=== PATIENT | female | born 1975 | race Caucasian/White ===

== ENCOUNTER 2016-08-10 21:37 | Emergency (ER) | payer OTHER ==
[2016-08-10 22:46] VITALS: TEMP 99.1
--- NOTE | 2016-08-11 00:02 | XR ---
ADDENDUM - Added by Brandon Loza M.D. on 08/11/2016 12:28 AM (-07:00) Well defined benign appearing lytic lesion is seen within the scaphoid which may represent a unicameral bone cyst, aneurysmal bone cyst, intraosseous ganglion, giant cell tumor or other lesion. No definite evidence of fracture. Impression. EXAM: XR Left Hand Complete, 3 or More Views CLINICAL HISTORY: Reason: Pain TECHNIQUE: Frontal, lateral and oblique views of the left hand. COMPARISON: No relevant prior studies available. FINDINGS: Bones/joints: Unremarkable. No acute fracture. No dislocation. Soft tissues: Unremarkable. No radiopaque foreign body. IMPRESSION: Unremarkable left hand x-rays.
--- NOTE | 2016-08-11 00:15 | ED ---
Upper Extremity HPI - General Chief Complaint: Extremity Injury, Upper Stated Complaint: lt wrist pain Time Seen by Provider: 08/10/16 23:04 Source: patient, RN notes reviewed Mode of arrival: ambulatory Limitations: no limitations - History of Present Illness Initial Comments: This is a 41 year old female with left wrist pain, patient reports she has no significant injury to cause this. She reports she woke up to the pain. STates that she has no numbness or thingling. She reports she is right handed. She states that she has not taken any anti inflammatories yet. reports pain is worse with movment of wrist, and more towards ganesh thumb. - Related Data Home Medications Medication Instructions Recorded Confirmed Atorvastatin [Lipitor] 20 mg PO HS 04/12/14 08/10/16 Citalopram Hydrobromide 40 mg PO DAILY 04/12/14 08/10/16 [Citalopram HBr] Ibuprofen [Motrin] 800 mg PO TID PRN 04/12/14 08/10/16 buPROPion SR [Wellbutrin Sr] 150 mg PO BID 04/12/14 08/10/16 Albuterol Inhaler [Ventolin Hfa 2 puff INHALATION RT-Q6H PRN 10/23/15 08/10/16 Inhaler] Cetirizine HCl [Zyrtec] 10 mg PO DAILY 10/23/15 08/10/16 Ergocalciferol [Vitamin D2 50,000 unit PO WE 10/23/15 08/10/16 (DRISDOL)] Ranitidine HCl [Zantac] 150 mg PO BID 10/23/15 08/10/16 oxyCODONE-APAP 10-325MG [Percocet 1 tab PO Q6HR PRN 10/23/15 08/10/16 10-325 mg] Cyclobenzaprine [Flexeril] 10 mg PO TID PRN 08/10/16 08/10/16 FLUoxetine HCL [PROzac] 20 mg PO DAILY 08/10/16 08/10/16 Previous Rx's Medication Instructions Recorded Ibuprofen [Motrin] 800 mg PO Q6HR PRN #20 tab 08/11/16 Allergies Allergy/AdvReac Type Severity Reaction Status Date / Time No Known Allergies Allergy Verified 08/10/16 23:14 Review of Systems ROS Statement: Those systems with pertinent positive or pertinent negative responses have been documented in the HPI. ROS Other: All systems not noted in ROS Statement are negative. Constitutional: Denies: fever, chills Eyes: Denies: eye pain ENT: Denies: ear pain Respiratory: Denies: cough, dyspnea Cardiovascular: Denies: chest pain Endocrine: Denies: fatigue Gastrointestinal: Denies: abdominal pain Genitourinary: Denies: urgency Musculoskeletal: Denies: back pain Skin: Reports: rash. Denies: lesions, change in color, pruritus Neurological: Denies: headache, weakness, paresthesias Psychiatric: Denies: depression, visual hallucinations Hematological/Lymphatic: Denies: easy bleeding Past Medical History Past Medical History: Diabetes Mellitus, Hyperlipidemia, Osteoarthritis (OA) Additional Past Medical History / Comment(s): PT STATES TYPE 2 DIABETES WITH NO MEDS. STATES SCHEDULED FOR LEFT KNEE REPLACEMENT WITH DR WARREN. History of Any Multi-Drug Resistant Organisms: None Reported Past Surgical History: Section, Cholecystectomy, Joint Replacement, Tubal Ligation, Uterine Ablation Additional Past Surgical History / Comment(s): LEFT KNEE REPLACEMENT Past Anesthesia/Blood Transfusion Reactions: Postoperative Nausea & Vomiting ( PONV) Past Psychological History: Anxiety, Depression Smoking Status: Current every day smoker Past Alcohol Use History: None Reported Past Drug Use History: None Reported General Exam - General Exam Comments Initial Comments: Obese woman, sitting in hallway bed. No distress. Limitations: no limitations General appearance: alert, in no apparent distress Course Vital Signs 08/10/16 08/11/16 22:42 00:20 Temperature 99.1 F Pulse Rate 83 85 Respiratory 18 16 Rate Blood Pressure 149/92 126/78 O2 Sat by Pulse 99 97 Oximetry Medical Decision Making - Medical Decision Making This is a 41 year old female with left wrist pain, patient reports she has no significant injury to cause this. She reports she woke up to the pain. STates that she has no numbness or thingling. She reports she is right handed. She states that she has not taken any anti inflammatories yet. Xray show no acute process. Discuss patient can likely have a tendonitis, and to wrap hand and wrist in WISAM wrap, take intiinflammatories. Patient given referral to orthopedic. Disposition Clinical Impression: Strain of left wrist Disposition: HOME SELF-CARE Condition: Good Instructions: Wrist Injury (ED) Additional Instructions: She advised to rest, ice extremity. Keep it in Wisam wrap. Follow-up with orthopedic if symptoms continue to persist. Take anti-inflammatory medication as directed. Prescriptions: Ibuprofen [Motrin] 800 mg PO Q6HR PRN #20 tab PRN Reason: Pain Referrals: Waldo Butcher DO [Primary Care Provider] - 1-2 days Time of Disposition: 00:14
[2016-08-11 00:26] VITALS: BP 126/78; PULSE 85; RESP 16
--- NOTE | 2016-08-11 00:33 | XR ---
EXAM: XR Left Wrist Complete, 4 Views CLINICAL HISTORY: Reason: Pain TECHNIQUE: Frontal, lateral and oblique views of the left wrist. Scaphoid view also performed. COMPARISON: No relevant prior studies available. FINDINGS: Bones/joints: Well defined benign appearing lytic lesion is seen within the scaphoid which may represent a unicameral bone cyst, aneurysmal bone cyst, intraosseous ganglion, giant cell tumor or other lesion. No definite evidence of fracture. Soft tissues: Unremarkable. No radiopaque foreign body. IMPRESSION: Well defined benign appearing lytic lesion is seen within the scaphoid which may represent a unicameral bone cyst, aneurysmal bone cyst, intraosseous ganglion, giant cell tumor or other lesion. No definite evidence of fracture. Follow up as clinically indicated.
== END 2016-08-11 00:25 | disposition home or self-care (01) ==
LOC: EC 21:37
DX: S66.912A Strain of unspecified muscle, fascia and tendon at wrist and hand level, left hand, initial encounter (principal); F41.9 Anxiety disorder, unspecified; F32.9 Major depressive disorder, single episode, unspecified; E78.5 Hyperlipidemia, unspecified; F17.200 Nicotine dependence, unspecified, uncomplicated; Z96.652 Presence of left artificial knee joint; Z79.899 Other long term (current) drug therapy
CPT/HCPCS: 99283

== ENCOUNTER → 2017-02-16 | Outpatient (CLI) | payer OTHER | LOC: CPPFTMAIN 09:28 | PROVIDERS: ATTEND Family Medicine | DX: J44.9 Chronic obstructive pulmonary disease, unspecified (principal) | CPT/HCPCS: 94060; 94726; 94729 ==

== ENCOUNTER → 2017-08-13 | Outpatient (CLI) | payer OTHER ==
--- NOTE | 2017-08-14 12:50 | XR ---
Thoracic spine HISTORY: Pain 3 views of the thoracic spine There is a mild spinal curvature. Multilevel spondylosis is present. Thoracic vertebral bodies show p reserved height, alignment, and bone mineralization. Disc spaces relatively maintained. Surgical clip s present right upper quadrant. IMPRESSION: Thoracic spondylosis. MRI may be of benefit. Spinal curvature may be positional.
--- NOTE | 2017-08-14 12:52 | XR ---
EXAMINATION TYPE: XR chest 2V DATE OF EXAM: 08/13/2017 COMPARISON: Prior chest x-ray 04/20/2015 HISTORY: Back pain TECHNIQUE: Frontal and lateral views of the chest are obtained. FINDINGS: There is multilevel spondylosis present. There is no evident airspace disease, pneumothora x, or pleural effusion. Cardiac mediastinal silhouette, pulmonary vascularity and gianna are within nor mal limits. Patient is rotated. IMPRESSION: No acute cardiopulmonary process.
== END | disposition home or self-care (01) ==
LOC: RADXRMAIN 17:16
PROVIDERS: ATTEND Physician Assistant
DX: M47.814 Spondylosis without myelopathy or radiculopathy, thoracic region (principal)
CPT/HCPCS: 71046; 72072

== ENCOUNTER → 2018-02-14 | Outpatient (CLI) | payer OTHER ==
--- NOTE | 2018-02-14 15:32 | XR ---
EXAMINATION TYPE: XR ankle complete LT DATE OF EXAM: 02/14/2018 COMPARISON: NONE HISTORY: Pain TECHNIQUE: 3 views of the left ankle are submitted for evaluation. FINDINGS: There is no evidence for fracture or dislocation. Ankle mortise is intact. Soft tissues are within normal limits. IMPRESSION: 1. No evidence for acute fracture.
== END | disposition home or self-care (01) ==
LOC: RADXRMAIN 12:40
PROVIDERS: ATTEND Family Medicine
DX: M25.572 Pain in left ankle and joints of left foot (principal)

== ENCOUNTER → 2018-06-30 | Outpatient (CLI) | payer OTHER ==
--- NOTE | 2018-07-01 12:25 | MM ---
Reason for exam: screening (asymptomatic). Last mammogram was performed 5 years and 1 month ago. Physical Findings: A clinical breast exam by your physician is recommended on an annual basis and results should be correlated with mammographic findings. MG 3D Screening Mammo W/Cad Bilateral CC and MLO view(s) were taken. XCCL view(s) were taken of the left breast. Prior study comparison: May 31, 2013, bilateral digital screening mammo w/CAD. July 03, 2009, mammogram, performed at [facility]. There are scattered fibroglandular densities. No significant changes when compared with prior studies. ASSESSMENT: Benign, BI-RAD 2 RECOMMENDATION: Routine screening mammogram of both breasts in 1 year.
== END ==
LOC: RADMAMWWP 14:08
PROVIDERS: ATTEND Family Medicine
DX: Z12.31 Encounter for screening mammogram for malignant neoplasm of breast (principal)
CPT/HCPCS: 77063; 77067

== ENCOUNTER 2018-08-10 15:12 | Emergency (ER) | payer OTHER ==
[2018-08-10 15:21] VITALS: RESP 18
[2018-08-10 15:23] LABS: Glucose,Whole Blood 109 mg/dL (75-99)
[2018-08-10] MEDS ORDERED: SODIUM CHLORIDE 0.9% 1,000 ML IV STA (15:50)
--- NOTE | 2018-08-10 15:54 | ED ---
General Adult HPI - General Chief complaint: Syncope Stated complaint: Syncope Time Seen by Provider: 08/10/18 15:13 Source: patient, EMS Mode of arrival: EMS Limitations: no limitations - History of Present Illness Initial comments: Dictation was produced using [employer] dictation software. please excuse any grammatical, word or spelling errors. Chief Complaint: 43-year-old female past medical history diabetes, chronic back pain and dyslipidemia presents with syncope. History of Present Illness: 43-year-old female with past nuchal history of diabetes chronic back pain presents after episode of syncope. She was at her PCPs office where she was at a regular appointment and also to get a refill for Percocets. She states her appointment was done when she was sitting up from putting on her shoes. She then Remember that she was in a chair and people were waking her up. She woke up and then had one episode of nausea and vomiting. She states her emesis is nonbilious not bloody. Patient otherwise feels well and has no complaints at this time. Patient denies any history of syncope. Patient was brought to the ED by EMS. She had a blood glucose of 128. They report that her blood pressure was 90s in the PCPs office. The ROS documented in this emergency department record has been reviewed and confirmed by me. Those systems with pertinent positive or negative responses have been documented in the HPI. All other systems are other negative and/or noncontributory. PHYSICAL EXAM: General Impression: Alert and oriented x3, not in acute distress HEENT: Normocephalic atraumatic, extra-ocular movements intact, pupils equal and reactive to light bilaterally, mucous membranes moist. Cardiovascular: Heart regular rate and rhythm, S1&S2 audible, no murmurs, rubs or gallops Chest: Lungs clear to auscultation bilaterally, no rhonchi, no wheeze, no rales Abdomen: Bowel sounds present, abdomen soft, non-tender, non-distended, no organomegaly Musculoskeletal: Pulses present and equal in all extremities, no peripheral edema Motor: no focal deficits noted Neurological: CN II-XII grossly intact, no focal motor or sensory deficits noted Skin: Intact with no visualized rashes Psych: Normal affect and mood ED course: 43-year-old female presents after episode of syncope. Vital signs upon arrival are within acceptable limits. Medications were reviewed. Patient is on multiple medications EKG is unremarkable. Laboratory evaluation shows mild leukocytosis of 12.4 likely secondary to stress. Patient given intravenous fluids. CBC is otherwise unremarkable. Coag panel negative. Metabolic panel is negative. Cardiac enzymes negative. Urinalysis is negative. Patient was on the radiographer cardiac catheterization with stable vital signs. Patient observed in emergency department for couple hours with no acute events seen on radiographer cardiac catheterization. Patient is reevaluated and reports that she is going at baseline. Patient clear for discharge. Clinical presentation likely secondary to vasovagal syncope. Return parameters discussed. At time of discharge patient had no complaints. EKG interpretation: Ventricular rate 52, sinus bradycardia, IA interval 162, first 96, QTC 424. No IA prolongation, no QTC prolongation, no ST or T-wave changes noted. EKG compared to Gen. 2015 showing no changes. Overall, this EKG is unremarkable - Related Data Home Medications Medication Instructions Recorded Confirmed Ibuprofen [Motrin] 800 mg PO TID PRN 04/12/14 08/10/18 Albuterol Inhaler [Ventolin Hfa 2 puff INHALATION RT-Q6H PRN 10/23/15 08/10/18 Inhaler] Cetirizine HCl [Zyrtec] 10 mg PO DAILY 10/23/15 08/10/18 Ergocalciferol [Vitamin D2 50,000 unit PO WE 10/23/15 08/10/18 (DRISDOL)] oxyCODONE-APAP 10-325MG [Percocet 1 tab PO Q6HR PRN 10/23/15 08/10/18 10-325 mg] Cyclobenzaprine [Flexeril] 10 mg PO TID PRN 08/10/16 08/10/18 Atorvastatin [Lipitor] 40 mg PO HS 08/10/18 08/10/18 Beclomethasone Dip 80 Mcg/Puff 2 puff INHALATION RT-BID 08/10/18 08/10/18 [Qvar 80 mcg] Canagliflozin [Invokana] 100 mg PO DAILY 08/10/18 08/10/18 FLUoxetine HCL [PROzac] 40 mg PO DAILY 08/10/18 08/10/18 Lisinopril-Hctz 20-12.5 mg 1 tab PO DAILY 08/10/18 08/10/18 [Zestoretic 20-12.5] Magnesium Oxide [Mag-Ox] 400 mg PO DAILY 08/10/18 08/10/18 Psyllium Husk/Aspartame [Metamucil 1 scoop PO DAILY 08/10/18 08/10/18 Sugar-Free Powder] metFORMIN HCL ER [Glucophage Xr] 2,000 mg PO DAILY 08/10/18 08/10/18 sitaGLIPtin [Januvia] 100 mg PO DAILY 08/10/18 08/10/18 traZODone HCL [TraZODone HCl] 25 mg PO HS 08/10/18 08/10/18 Allergies Allergy/AdvReac Type Severity Reaction Status Date / Time No Known Allergies Allergy Verified 08/10/18 15:24 Review of Systems ROS Statement: Those systems with pertinent positive or pertinent negative responses have been documented in the HPI. ROS Other: All systems not noted in ROS Statement are negative. Past Medical History Past Medical History: Diabetes Mellitus, Hyperlipidemia, Osteoarthritis (OA) Additional Past Medical History / Comment(s): PT STATES TYPE 2 DIABETES WITH NO MEDS. STATES SCHEDULED FOR LEFT KNEE REPLACEMENT WITH DR WARREN; chronic back pain History of Any Multi-Drug Resistant Organisms: None Reported Past Surgical History: Section, Cholecystectomy, Joint Replacement, Tubal Ligation, Uterine Ablation Additional Past Surgical History / Comment(s): LEFT KNEE REPLACEMENT Past Anesthesia/Blood Transfusion Reactions: Postoperative Nausea & Vomiting (PONV) Past Psychological History: Anxiety, Depression Smoking Status: Former smoker Past Alcohol Use History: None Reported Past Drug Use History: None Reported General Exam Limitations: no limitations Course Vital Signs 08/10/18 08/10/18 08/10/18 15:15 15:28 16:00 Temperature 97.6 F Pulse Rate 55 L 56 L Pulse Rate [ 52 L Senior Accounting Associate ] Respiratory 18 18 Rate Blood Pressure 113/72 105/43 O2 Sat by Pulse 95 98 Oximetry 08/10/18 16:30 Temperature Pulse Rate 59 L Pulse Rate [ Senior Accounting Associate ] Respiratory 18 Rate Blood Pressure 109/68 O2 Sat by Pulse 97 Oximetry Medical Decision Making - Lab Data Result diagrams: 08/10/18 16:00 08/10/18 16:00 Lab Results 08/10/18 08/10/18 08/10/18 Range/Units 15:21 16:00 16:00 WBC 12.4 H (3.8-10.6) k/uL RBC 4.92 (3.80-5.40) m/uL Hgb 13.3 (11.4-16.0) gm/dL Hct 42.1 (34.0-46.0) % MCV 85.7 (80.0-100.0) fL MCH 27.1 (25.0-35.0) pg MCHC 31.6 (31.0-37.0) g/dL RDW 14.7 (11.5-15.5) % Plt Count 291 (150-450) k/uL Neutrophils % 66 % Lymphocytes % 25 % Monocytes % 5 % Eosinophils % 3 % Basophils % 1 % Neutrophils # 8.1 H (1.3-7.7) k/uL Lymphocytes # 3.0 (1.0-4.8) k/uL Monocytes # 0.7 (0-1.0) k/uL Eosinophils # 0.4 (0-0.7) k/uL Basophils # 0.1 (0-0.2) k/uL PT (9.0-12.0) sec INR (<1.2) APTT (22.0-30.0) sec Sodium 137 (137-145) mmol/L Potassium 4.8 (3.5-5.1) mmol/L Chloride 103 (98-107) mmol/L Carbon Dioxide 27 (22-30) mmol/L Anion Gap 7 mmol/L BUN 13 (7-17) mg/dL Creatinine 0.81 (0.52-1.04) mg/dL Est GFR (CKD-EPI)AfAm >90 (>60 ml/min/1.73 sqM) Est GFR (CKD-EPI)NonAf 89 (>60 ml/min/1.73 sqM) Glucose 109 H (74-99) mg/dL POC Glucose (mg/dL) 109 H (75-99) mg/dL POC Glu Hourly Shift Manager ID Frieda Ham Calcium 10.1 (8.4-10.2) mg/dL Magnesium 1.8 (1.6-2.3) mg/dL Total Bilirubin 0.6 (0.2-1.3) mg/dL AST 39 H (14-36) U/L ALT 24 (9-52) U/L Alkaline Phosphatase 90 (38-126) U/L Troponin I (0.000-0.034) ng/mL Total Protein 8.0 (6.3-8.2) g/dL Albumin 4.2 (3.5-5.0) g/dL Urine Color Urine Appearance (Clear) Urine pH (5.0-8.0) Ur Specific [place] (1.001-1.035) Urine Protein (Negative) Urine Glucose (UA) (Negative) Urine Ketones (Negative) Urine Blood (Negative) Urine Nitrite (Negative) Urine Bilirubin (Negative) Urine Urobilinogen (<2.0) mg/dL Ur Leukocyte Esterase (Negative) Urine HCG, Qual (Not Detectd) 08/10/18 08/10/18 08/10/18 Range/Units 16:00 16:00 16:45 WBC (3.8-10.6) k/uL RBC (3.80-5.40) m/uL Hgb (11.4-16.0) gm/dL Hct (34.0-46.0) % MCV (80.0-100.0) fL MCH (25.0-35.0) pg MCHC (31.0-37.0) g/dL RDW (11.5-15.5) % Plt Count (150-450) k/uL Neutrophils % % Lymphocytes % % Monocytes % % Eosinophils % % Basophils % % Neutrophils # (1.3-7.7) k/uL Lymphocytes # (1.0-4.8) k/uL Monocytes # (0-1.0) k/uL Eosinophils # (0-0.7) k/uL Basophils # (0-0.2) k/uL PT 10.0 (9.0-12.0) sec INR 0.9 (<1.2) APTT 24.7 (22.0-30.0) sec Sodium (137-145) mmol/L Potassium (3.5-5.1) mmol/L Chloride (98-107) mmol/L Carbon Dioxide (22-30) mmol/L Anion Gap mmol/L BUN (7-17) mg/dL Creatinine (0.52-1.04) mg/dL Est GFR (CKD-EPI)AfAm (>60 ml/min/1.73 sqM) Est GFR (CKD-EPI)NonAf (>60 ml/min/1.73 sqM) Glucose (74-99) mg/dL POC Glucose (mg/dL) (75-99) mg/dL POC Glu Hourly Shift Manager ID Calcium (8.4-10.2) mg/dL Magnesium (1.6-2.3) mg/dL Total Bilirubin (0.2-1.3) mg/dL AST (14-36) U/L ALT (9-52) U/L Alkaline Phosphatase (38-126) U/L Troponin I <0.012 (0.000-0.034) ng/mL Total Protein (6.3-8.2) g/dL Albumin (3.5-5.0) g/dL Urine Color Yellow Urine Appearance Clear (Clear) Urine pH 6.5 (5.0-8.0) Ur Specific [place] 1.024 (1.001-1.035) Urine Protein Negative (Negative) Urine Glucose (UA) 4+ H (Negative) Urine Ketones Negative (Negative) Urine Blood Negative (Negative) Urine Nitrite Negative (Negative) Urine Bilirubin Negative (Negative) Urine Urobilinogen <2.0 (<2.0) mg/dL Ur Leukocyte Esterase Negative (Negative) Urine HCG, Qual (Not Detectd) 08/10/18 Range/Units 16:45 WBC (3.8-10.6) k/uL RBC (3.80-5.40) m/uL Hgb (11.4-16.0) gm/dL Hct (34.0-46.0) % MCV (80.0-100.0) fL MCH (25.0-35.0) pg MCHC (31.0-37.0) g/dL RDW (11.5-15.5) % Plt Count (150-450) k/uL Neutrophils % % Lymphocytes % % Monocytes % % Eosinophils % % Basophils % % Neutrophils # (1.3-7.7) k/uL Lymphocytes # (1.0-4.8) k/uL Monocytes # (0-1.0) k/uL Eosinophils # (0-0.7) k/uL Basophils # (0-0.2) k/uL PT (9.0-12.0) sec INR (<1.2) APTT (22.0-30.0) sec Sodium (137-145) mmol/L Potassium (3.5-5.1) mmol/L Chloride (98-107) mmol/L Carbon Dioxide (22-30) mmol/L Anion Gap mmol/L BUN (7-17) mg/dL Creatinine (0.52-1.04) mg/dL Est GFR (CKD-EPI)AfAm (>60 ml/min/1.73 sqM) Est GFR (CKD-EPI)NonAf (>60 ml/min/1.73 sqM) Glucose (74-99) mg/dL POC Glucose (mg/dL) (75-99) mg/dL POC Glu Hourly Shift Manager ID Calcium (8.4-10.2) mg/dL Magnesium (1.6-2.3) mg/dL Total Bilirubin (0.2-1.3) mg/dL AST (14-36) U/L ALT (9-52) U/L Alkaline Phosphatase (38-126) U/L Troponin I (0.000-0.034) ng/mL Total Protein (6.3-8.2) g/dL Albumin (3.5-5.0) g/dL Urine Color Urine Appearance (Clear) Urine pH (5.0-8.0) Ur Specific [place] (1.001-1.035) Urine Protein (Negative) Urine Glucose (UA) (Negative) Urine Ketones (Negative) Urine Blood (Negative) Urine Nitrite (Negative) Urine Bilirubin (Negative) Urine Urobilinogen (<2.0) mg/dL Ur Leukocyte Esterase (Negative) Urine HCG, Qual Not Detected (Not Detectd) Disposition Clinical Impression: Syncope Disposition: HOME SELF-CARE Condition: Good Instructions (If sedation given, give patient instructions): Syncope (ED) Is patient prescribed a controlled substance at d/c from ED?: No Referrals: Waldo Butcher DO [Primary Care Provider] - 1-2 days Time of Disposition: 17:26
[2018-08-10 16:04] LABS: Basophils # (A) 0.1 k/uL (0-0.2); Basophils % (A) 1 %; Eosinophils # (A) 0.4 k/uL (0-0.7); Eosinophils % (A) 3 %; HCT 42.1 % (34.0-46.0); HGB 13.3 gm/dL (11.4-16.0); Lymphocytes % (A) 25 %; MCH 27.1 pg (25.0-35.0); MCHC 31.6 g/dL (31.0-37.0); MCV 85.7 fL (80.0-100.0); Mean Platelet Volume 8.2; Monocytes # (A) 0.7 k/uL (0-1.0); Monocytes % (A) 5 %; Neutrophils # (A) 8.1 k/uL (1.3-7.7); Neutrophils % (A) 66 %; Platelet Count 291 k/uL (150-450); RBC 4.92 m/uL (3.80-5.40); RDW 14.7 % (11.5-15.5); WBC 12.4 k/uL (3.8-10.6)
[2018-08-10 16:14] LABS: ALT 24 U/L (9-52); AST 39 U/L (14-36); Albumin 4.2 g/dL (3.5-5.0); Alkaline Phosphatase 90 U/L (38-126); Anion Gap 7 mmol/L; Blood Urea Nitrogen 13 mg/dL (7-17); Calcium 10.1 mg/dL (8.4-10.2); Carbon Dioxide 27 mmol/L (22-30); Chloride 103 mmol/L (98-107); Glucose 109 mg/dL (74-99); Magnesium 1.8 mg/dL (1.6-2.3); Potassium 4.8 mmol/L (3.5-5.1); Sodium 137 mmol/L (137-145); Total Bilirubin 0.6 mg/dL (0.2-1.3)
[2018-08-10 16:17] LABS: INR 0.9 (<1.2); Partial Thromboplastin Time 24.7 sec (22.0-30.0)
[2018-08-10 17:15] LABS: Appearance,Urine Clear (Clear); Bilirubin,Urine Negative (Negative); Blood,Urine Negative (Negative); Color,Urine Yellow; Glucose,Urine (UA) 4+ (Negative); Ketones,Urine Negative (Negative); Leukocyte Esterase,Urine Negative (Negative); Nitrite,Urine Negative (Negative); PH, Urine 6.5 (5.0-8.0); Protein,Urine Negative (Negative); Specific Gravity,Urine 1.024 (1.001-1.035); Urobilinogen,Urine <2.0 mg/dL (<2.0)
[2018-08-10 17:36] VITALS: BP 114/60; PULSE 52; TEMP 97.7
== END 2018-08-10 18:10 | disposition home or self-care (01) ==
LOC: EC 15:12
DX: R55 Syncope and collapse (principal); R00.1 Bradycardia, unspecified; D72.829 Elevated white blood cell count, unspecified; R11.2 Nausea with vomiting, unspecified; E11.9 Type 2 diabetes mellitus without complications; E78.5 Hyperlipidemia, unspecified; M19.90 Unspecified osteoarthritis, unspecified site; F32.9 Major depressive disorder, single episode, unspecified; F41.9 Anxiety disorder, unspecified; Z87.891 Personal history of nicotine dependence; Z79.51 Long term (current) use of inhaled steroids; Z79.84 Long term (current) use of oral hypoglycemic drugs; Z79.899 Other long term (current) drug therapy; Z96.652 Presence of left artificial knee joint; Z90.49 Acquired absence of other specified parts of digestive tract
CPT/HCPCS: 36415; 80053; 81003; 81025; 83735; 84484; 85025; 85610; 85730; 93005; 96360; 99284

== ENCOUNTER → 2018-10-12 | Outpatient (CLI) | payer OTHER ==
--- NOTE | 2018-10-12 16:21 | XR ---
EXAMINATION TYPE: XR foot limited RT DATE OF EXAM: 10/12/2018 CLINICAL HISTORY: pain TECHNIQUE: Frontal, lateral images of the right foot are obtained. COMPARISON: None. FINDINGS: There is no acute fracture/dislocation evident. The joint spaces appear within normal quintana its. The overlying soft tissue appears unremarkable. Enteric calcaneal spurring noted. IMPRESSION: There is no acute fracture or dislocation. ICD 10 NO FRACTURE, INITIAL EVALUATION
== END | disposition home or self-care (01) ==
LOC: RADXRMAIN 15:57
PROVIDERS: ATTEND Family Medicine
DX: M79.671 Pain in right foot (principal)

== ENCOUNTER 2018-12-04 20:59 | Emergency (ER) | payer OTHER ==
[2018-12-04 21:07] VITALS: BP 153/96; PULSE 91; RESP 18; TEMP 98.3
--- NOTE | 2018-12-04 21:50 | XR ---
EXAMINATION TYPE: XR knee complete LT DATE OF EXAM: 12/04/2018 COMPARISON: NONE HISTORY: Knee pain TECHNIQUE: 3 views FINDINGS: There is left knee prosthesis. Components appear in anatomic position. I see no fracture. T here is no sign of joint effusion. IMPRESSION: Knee prosthesis without evidence of a complicating process.
--- NOTE | 2018-12-04 22:11 | ED ---
Extremity Problem HPI - General Chief complaint: Extremity Problem,Nontraumatic Stated complaint: Knee pain Time Seen by Provider: 12/04/18 21:18 Source: patient, RN notes reviewed, old records reviewed Mode of arrival: ambulatory Limitations: no limitations - History of Present Illness Initial comments: Patient is a 43-year-old female who presents emergency department today with left knee swelling. Patient reports she has a left knee prosthesis. Patient's orthopedic as Dr. Valente. Patient reports had no fall or trauma. Patient says she has noticed that the contusion area developed over the medial aspect of her knee. Patient states that she has not taken anything for pain relief. Patient reports the pain is worse with bearing weight over the knee. Patient denies any recent fever, chills, shortness of breath, chest pain, back pain, abdominal pain, nausea vomiting, numbness or tingling, dysuria or hematuria, constipation or diarrhea, headaches or visual changes, or any other current symptoms - Related Data Home Medications Medication Instructions Recorded Confirmed Ibuprofen [Motrin] 800 mg PO TID PRN 04/12/14 08/10/18 Albuterol Inhaler [Ventolin Hfa 2 puff INHALATION RT-Q6H PRN 10/23/15 08/10/18 Inhaler] Cetirizine HCl [Zyrtec] 10 mg PO DAILY 10/23/15 08/10/18 Ergocalciferol [Vitamin D2 50,000 unit PO WE 10/23/15 08/10/18 (DRISDOL)] oxyCODONE-APAP 10-325MG [Percocet 1 tab PO Q6HR PRN 10/23/15 08/10/18 10-325 mg] Cyclobenzaprine [Flexeril] 10 mg PO TID PRN 08/10/16 08/10/18 Atorvastatin [Lipitor] 40 mg PO HS 08/10/18 08/10/18 Beclomethasone Dip 80 Mcg/Puff 2 puff INHALATION RT-BID 08/10/18 08/10/18 [Qvar 80 mcg] Canagliflozin [Invokana] 100 mg PO DAILY 08/10/18 08/10/18 FLUoxetine HCL [PROzac] 40 mg PO DAILY 08/10/18 08/10/18 Lisinopril-Hctz 20-12.5 mg 1 tab PO DAILY 08/10/18 08/10/18 [Zestoretic 20-12.5] Magnesium Oxide [Mag-Ox] 400 mg PO DAILY 08/10/18 08/10/18 Psyllium Husk/Aspartame [Metamucil 1 scoop PO DAILY 08/10/18 08/10/18 Sugar-Free Powder] metFORMIN HCL ER [Glucophage Xr] 2,000 mg PO DAILY 08/10/18 08/10/18 sitaGLIPtin [Januvia] 100 mg PO DAILY 08/10/18 08/10/18 traZODone HCL [TraZODone HCl] 25 mg PO HS 08/10/18 08/10/18 Allergies Allergy/AdvReac Type Severity Reaction Status Date / Time No Known Allergies Allergy Verified 12/04/18 21:07 Review of Systems ROS Statement: Those systems with pertinent positive or pertinent negative responses have been documented in the HPI. ROS Other: All systems not noted in ROS Statement are negative. Past Medical History Past Medical History: Diabetes Mellitus, Hyperlipidemia, Osteoarthritis (OA) Additional Past Medical History / Comment(s): PT STATES TYPE 2 DIABETES WITH NO MEDS. STATES SCHEDULED FOR LEFT KNEE REPLACEMENT WITH DR VALENTE; chronic back pain History of Any Multi-Drug Resistant Organisms: None Reported Past Surgical History: Section, Cholecystectomy, Joint Replacement, Tubal Ligation, Uterine Ablation Additional Past Surgical History / Comment(s): LEFT KNEE REPLACEMENT Past Anesthesia/Blood Transfusion Reactions: Postoperative Nausea & Vomiting (PONV) Past Psychological History: Anxiety, Depression Smoking Status: Former smoker Past Alcohol Use History: None Reported Past Drug Use History: None Reported General Exam - General Exam Comments Initial Comments: 43-year-old female. Alert and oriented. No significant distress. Limitations: no limitations General appearance: alert, in no apparent distress Head exam: Present: atraumatic, normocephalic, normal inspection Eye exam: Present: normal appearance, PERRL, EOMI. Absent: scleral icterus, conjunctival injection, periorbital swelling ENT exam: Present: normal exam, mucous membranes moist Neck exam: Present: normal inspection. Absent: tenderness, meningismus, lymphadenopathy Respiratory exam: Present: normal lung sounds bilaterally. Absent: respiratory distress, wheezes, rales, rhonchi, stridor Cardiovascular Exam: Present: regular rate, normal rhythm, normal heart sounds. Absent: systolic murmur, diastolic murmur, rubs, gallop, clicks GI/Abdominal exam: Present: soft, normal bowel sounds. Absent: distended, tenderness, guarding, rebound, rigid Extremities exam: Present: normal inspection, full ROM, normal capillary refill, other (Patient some swelling over the left anterior knee. Evidence of contusion. Tenderness over the meniscus.). Absent: tenderness, pedal edema, joint swelling, calf tenderness Back exam: Present: normal inspection Neurological exam: Present: alert, oriented X3, CN II-XII intact Psychiatric exam: Present: normal affect, normal mood Skin exam: Present: warm, dry, intact, normal color. Absent: rash Course Vital Signs 12/04/18 21:05 Temperature 98.3 F Pulse Rate 91 Respiratory 18 Rate Blood Pressure 153/96 O2 Sat by Pulse 97 Oximetry Medical Decision Making - Medical Decision Making Since 43-year-old female presents with nontraumatic left knee pain. She's had history of left knee prosthesis. She does have evidence of contusion over the left knee. Patient's at this time reports her orthopedics Dr. Valente. Patient has full range of motion of the knee normal pulses and sensation distally. tenderness redness. Low clinical suspicion for DVT. Patient at this time has getting process on her x-ray did show prosthesis. Patient was given Wisam wrap and advised to use antibiotic times for medicine. All questions answered return parameters were discussed. - Radiology Data Radiology results: report reviewed A prosthesis evidence of complication process. Disposition Clinical Impression: Left knee pain, Knee swelling Disposition: HOME SELF-CARE Condition: Good Instructions (If sedation given, give patient instructions): Knee Pain (ED) Additional Instructions: Please use medication as discussed. Please follow up with family doctor if symptoms have not improved over the next two days. Please return to the emergency room if your symptoms increase or worsen or for any other concerns. Patient to keep her knee up and elevated above her heart. Wear the Wisam wrap. Ice the knee frequently. Is patient prescribed a controlled substance at d/c from ED?: No Referrals: Waldo Butcher DO [Primary Care Provider] - 1-2 days Time of Disposition: 22:10
== END 2018-12-04 22:21 | disposition home or self-care (01) ==
LOC: EC 20:59
DX: M25.562 Pain in left knee (principal); M25.462 Effusion, left knee; E11.9 Type 2 diabetes mellitus without complications; E78.5 Hyperlipidemia, unspecified; M19.90 Unspecified osteoarthritis, unspecified site; F41.9 Anxiety disorder, unspecified; F32.9 Major depressive disorder, single episode, unspecified; Z79.84 Long term (current) use of oral hypoglycemic drugs; Z79.899 Other long term (current) drug therapy; Z87.891 Personal history of nicotine dependence; Z96.652 Presence of left artificial knee joint
CPT/HCPCS: 99284

== ENCOUNTER → 2019-02-27 | Outpatient (CLI) | payer OTHER ==
--- NOTE | 2019-02-28 11:00 | ECHOF ---
Referral Reason:R94.31 Abnormal EKG MEASUREMENTS -------- HEIGHT: 154.9 cm WEIGHT: 150.1 kg BP: RVIDd: 2.9 cm (< 3.3) IVSd: 1.0 cm (0.6 - 1.1) LVIDd: 4.1 cm (3.9 - 5.3) LVPWd: 1.2 cm (0.6 - 1.1) IVSs: 1.7 cm LVIDs: 1.6 cm LVPWs: 2.0 cm LAESV Index (A-L): 21.42 ml/m Ao Diam: 3.0 cm (2.0 - 3.7) AV Cusp: 1.9 cm (1.5 - 2.6) LA Diam: 3.2 cm (2.7 - 3.8) MV EXCURSION: 12.842 mm (> 18.000) MV EF SLOPE: 88 mm/s (70 - 150) EPSS: 0.5 cm MV E Darío: 0.71 m/s MV DecT: 256 ms MV A Darío: 0.58 m/s MV E/A Ratio: 1.22 RAP: 5.00 mmHg RVSP: 24.33 mmHg TAPSE: 22.86 mm FINDINGS -------- Sinus rhythm. This was a technically adequate study. The left ventricular size is normal. There is borderline concentric left ventricular hypertrophy. Overall left ventricular systolic function is normal with, an EF between 55 - 60 %. The diastolic filling pattern is normal for the age of the patient 11.29. The right ventricle is normal in size. The right ventricular systolic function is normal. The left atrial size is normal. Normal LA size by volume 22+/-6 ml/m2. The right atrial size is normal. Interatrial and interventricular septum intact. The aortic valve is trileaflet and appears structurally normal. The mitral valve is normal. There is trace mitral regurgitation. The tricuspid valve appears structurally normal. Trace tricuspid regurgitation present. Right amy tricular systolic pressure is normal at < 35 mmHg. There is no pulmonic regurgitation present. The aortic root size is normal. Normal inferior vena cava with normal inspiratory collapse consistent with estimated right atrial pre ssure of 5 mmHg. There is no pericardial effusion. CONCLUSIONS -------- 1. Sinus rhythm. 2. This was a technically adequate study. 3. The left ventricular size is normal. 4. There is borderline concentric left ventricular hypertrophy. 5. Overall left ventricular systolic function is normal with, an EF between 55 - 60 %. 6. The diastolic filling pattern is normal for the age of the patient 11.29 7. The right ventricle is normal in size. 8. The right ventricular systolic function is normal. 9. The left atrial size is normal. 10. Normal LA size by volume 22+/-6 ml/m2. 11. The right atrial size is normal. 12. Interatrial and interventricular septum intact. 13. The aortic valve is trileaflet and appears structurally normal. 14. The mitral valve is normal. 15. There is trace mitral regurgitation. 16. The tricuspid valve appears structurally normal. 17. Trace tricuspid regurgitation present. 18. Right ventricular systolic pressure is normal at < 35 mmHg. 19. There is no pulmonic regurgitation present. 20. The aortic root size is normal. 21. Normal inferior vena cava with normal inspiratory collapse consistent with estimated right atrial pressure of 5 mmHg. 22. There is no pericardial effusion. COATER HAND: Bhumi Bueno RDCS
== END | disposition home or self-care (01) ==
LOC: RADECHMAIN 13:15
PROVIDERS: ATTEND Family Medicine
DX: R94.31 Abnormal electrocardiogram [ECG] [EKG] (principal)
CPT/HCPCS: 93306

== ENCOUNTER → 2019-03-02 | Outpatient (CLI) | payer OTHER | END | disposition home or self-care (01) | LOC: LABWHC1 13:10 | PROVIDERS: ATTEND Orthopaedic Surgery | DX: Z01.812 Encounter for preprocedural laboratory examination (principal) | CPT/HCPCS: 87070 ==

== ENCOUNTER 2019-03-18 | Emergency (ER) | payer OTHER ==
--- NOTE | 2019-03-18 01:17 | ED ---
Wound/Laceration HPI - General Chief Complaint: Wound/Laceration Stated Complaint: post knee op issue Time Seen by Provider: 03/18/19 00:10 Source: patient Mode of arrival: ambulatory Limitations: no limitations - History of Present Illness Initial Comments: this patient is a 44-year-old woman who presents to have evaluation of her left knee surgical incision. The patient states that she noticed that there was some blood at the bottom of the surgical dressing. She states that she clipped the bottom of the dressing off because it was saturated with blood and she did not want becoming infected. She states that she noticed that the bottom of the incision had opened up just a tiny bit and there was dark blood coming from it. Patient denies pain area she denies fever or chills. No chest pain or palpitations. -: hour(s) Extremity Location: Left: Knee Place: home Patient Tetanus UTD: Yes Associated Symptoms: none - Related Data Home Medications Medication Instructions Recorded Confirmed Ibuprofen [Motrin] 800 mg PO TID PRN 04/12/14 08/10/18 Albuterol Inhaler [Ventolin Hfa 2 puff INHALATION RT-Q6H PRN 10/23/15 08/10/18 Inhaler] Cetirizine HCl [Zyrtec] 10 mg PO DAILY 10/23/15 08/10/18 Ergocalciferol [Vitamin D2 50,000 unit PO WE 10/23/15 08/10/18 (DRISDOL)] oxyCODONE-APAP 10-325MG [Percocet 1 tab PO Q6HR PRN 10/23/15 08/10/18 10-325 mg] Cyclobenzaprine [Flexeril] 10 mg PO TID PRN 08/10/16 08/10/18 Atorvastatin [Lipitor] 40 mg PO HS 08/10/18 08/10/18 Beclomethasone Dip 80 Mcg/Puff 2 puff INHALATION RT-BID 08/10/18 08/10/18 [Qvar 80 mcg] Canagliflozin [Invokana] 100 mg PO DAILY 08/10/18 08/10/18 FLUoxetine HCL [PROzac] 40 mg PO DAILY 08/10/18 08/10/18 Lisinopril-Hctz 20-12.5 mg 1 tab PO DAILY 08/10/18 08/10/18 [Zestoretic 20-12.5] Magnesium Oxide [Mag-Ox] 400 mg PO DAILY 08/10/18 08/10/18 Psyllium Husk/Aspartame [Metamucil 1 scoop PO DAILY 08/10/18 08/10/18 Sugar-Free Powder] metFORMIN HCL ER [Glucophage Xr] 2,000 mg PO DAILY 08/10/18 08/10/18 sitaGLIPtin [Januvia] 100 mg PO DAILY 08/10/18 08/10/18 traZODone HCL [TraZODone HCl] 25 mg PO HS 08/10/18 08/10/18 Allergies Allergy/AdvReac Type Severity Reaction Status Date / Time No Known Allergies Allergy Verified 03/18/19 00:08 Review of Systems ROS Statement: Those systems with pertinent positive or pertinent negative responses have been documented in the HPI. ROS Other: All systems not noted in ROS Statement are negative. Constitutional: Denies: fever, chills, weakness Respiratory: Denies: cough, dyspnea Cardiovascular: Denies: chest pain, palpitations Gastrointestinal: Denies: abdominal pain, vomiting Skin: Reports: as per HPI. Denies: rash Neurological: Denies: weakness Past Medical History Past Medical History: Diabetes Mellitus, Hyperlipidemia, Osteoarthritis (OA) Additional Past Medical History / Comment(s): PT STATES TYPE 2 DIABETES WITH NO MEDS. STATES SCHEDULED FOR LEFT KNEE REPLACEMENT WITH DR WARREN; chronic back pain History of Any Multi-Drug Resistant Organisms: None Reported Past Surgical History: Section, Cholecystectomy, Joint Replacement, Tubal Ligation, Uterine Ablation Additional Past Surgical History / Comment(s): LEFT KNEE REPLACEMENT Past Anesthesia/Blood Transfusion Reactions: Postoperative Nausea & Vomiting (PONV) Past Psychological History: Anxiety, Depression Smoking Status: Former smoker Past Alcohol Use History: None Reported Past Drug Use History: None Reported General Exam Limitations: no limitations General appearance: alert, in no apparent distress Respiratory exam: Present: normal lung sounds bilaterally. Absent: respiratory distress, wheezes, rales, rhonchi, stridor Cardiovascular Exam: Present: regular rate, normal rhythm, normal heart sounds. Absent: systolic murmur, diastolic murmur, rubs, gallop GI/Abdominal exam: Present: soft. Absent: distended, tenderness, guarding, rebound Neurological exam: Present: alert. Absent: motor sensory deficit Skin exam: Present: warm, dry, normal color, other (the patient's surgical incision has a small area where there has been opening approximately 5-6 mm in length. There is no surrounding erythema or warmth. No purulent discharge. I did apply some gentle traction and there is no loss of integrity.) Course Vital Signs 03/18/19 03/18/19 00:06 01:30 Temperature 98 F 98.1 F Pulse Rate 63 70 Respiratory 18 20 Rate Blood Pressure 137/60 137/80 O2 Sat by Pulse 96 99 Oximetry Medical Decision Making - Medical Decision Making at this point it does not appear to be that there is a dehiscence in progress. There is a small gap in the incision and appears to be drainage of hematoma. Patient will follow-up with her surgeon. Discussed with her that she must return should there be any enlargement of the opening. Should she experience signs or symptoms of infection. Should she develop pain or any other concerning symptoms. I did reinforce the skin by applying some Mastisol and then Steri- Strips to that area. Disposition Clinical Impression: Encounter for wound re-check Disposition: HOME SELF-CARE Condition: Good Instructions (If sedation given, give patient instructions): Care For Your Stitches (DC) Is patient prescribed a controlled substance at d/c from ED?: No Referrals: Waldo Butcher DO [Primary Care Provider] - 1-2 days
[2019-03-18 01:31] VITALS: BP 137/80; PULSE 70; RESP 20; TEMP 98.1
== END 2019-03-18 01:31 | disposition home or self-care (01) ==
LOC: EC
DX: Z47.1 Aftercare following joint replacement surgery (principal); E11.9 Type 2 diabetes mellitus without complications; E78.5 Hyperlipidemia, unspecified; M19.90 Unspecified osteoarthritis, unspecified site; F32.9 Major depressive disorder, single episode, unspecified; F41.9 Anxiety disorder, unspecified; Z87.891 Personal history of nicotine dependence; Z79.1 Long term (current) use of non-steroidal anti-inflammatories (NSAID); Z79.51 Long term (current) use of inhaled steroids; Z79.84 Long term (current) use of oral hypoglycemic drugs; Z79.899 Other long term (current) drug therapy; Z96.652 Presence of left artificial knee joint
CPT/HCPCS: 99283

== ENCOUNTER → 2019-09-13 | Outpatient (CLI) | payer OTHER ==
--- NOTE | 2019-09-18 08:02 | MM ---
Reason for exam: screening (asymptomatic). Last mammogram was performed 1 year and 2 months ago. Physical Findings: A clinical breast exam by your physician is recommended on an annual basis and results should be correlated with mammographic findings. MG 3D Screening Mammo W/Cad Bilateral CC and MLO view(s) were taken. Prior study comparison: June 30, 2018, bilateral MG 3d screening mammo w/cad. There are scattered fibroglandular densities. No significant changes when compared with prior studies. ASSESSMENT: Negative, BI-RAD 1 RECOMMENDATION: Routine screening mammogram of both breasts in 1 year.
== END | disposition home or self-care (01) ==
LOC: RADMAMWWP 15:46
PROVIDERS: ATTEND Family Medicine
DX: Z12.31 Encounter for screening mammogram for malignant neoplasm of breast (principal)
CPT/HCPCS: 77063; 77067

== ENCOUNTER → 2019-09-13 | Outpatient (CLI) | payer OTHER ==
--- NOTE | 2019-09-13 16:47 | XR ---
EXAMINATION TYPE: XR ankle complete RT DATE OF EXAM: 09/13/2019 CLINICAL HISTORY: Lump and pain. TECHNIQUE: Frontal, lateral and oblique images of the right ankle are obtained. COMPARISON: None. FINDINGS: There is no acute fracture/dislocation evident in the right ankle. The ankle mortise appe ars within normal limits. Large inferior calcaneal spur. Tiny superior calcaneal spurring. Mild diffu se subcutaneous edema. IMPRESSION: As above.
== END | disposition home or self-care (01) ==
LOC: RADXRMAIN 16:18
PROVIDERS: ATTEND Family Medicine
DX: M77.31 Calcaneal spur, right foot (principal); R60.0 Localized edema

== ENCOUNTER → 2020-10-09 | Outpatient (CLI) | payer OTHER ==
--- NOTE | 2020-10-09 15:13 | MM ---
Reason for exam: additional evaluation requested from prior study. Last mammogram was performed 1 year and 1 month ago. Physical Findings: Nurse Summary: 1cm nodule in the right breast at 9:30 and a 3 x 1cm nodule in the left breast at 2 o'clock (nurse dw). MG 3D Diag Mammo W/Cad IRVIN Bilateral CC and MLO view(s) were taken. Prior study comparison: September 13, 2019, bilateral MG 3d screening mammo w/cad. June 30, 2018, bilateral MG 3d screening mammo w/cad. There are scattered fibroglandular densities. Bilateral upper outer quadrant palpables correspond to fat necrosis. These results were verbally communicated with the patient and result sheet given to the patient on 10/09/20. ASSESSMENT: Benign, BI-RAD 2 RECOMMENDATION: Routine screening mammogram of both breasts in 1 year. Manage patient on a clinical basis.
== END | disposition home or self-care (01) ==
LOC: RADMAMWWP 13:33
PROVIDERS: ATTEND Family Medicine
DX: N64.4 Mastodynia (principal)
CPT/HCPCS: 77066; G0279; 77062

== ENCOUNTER → 2021-06-02 | Outpatient (CLI) | payer OTHER ==
--- NOTE | 2021-06-02 17:57 | XR ---
EXAMINATION TYPE: XR abdomen 2V DATE OF EXAM: 06/02/2021 COMPARISON: X-ray dated 01/20/2014 INDICATION: Right sided upper quadrant pain TECHNIQUE: Upright and supine views of the abdomen. FINDINGS: The right hemidiaphragm is not completely included in the upright position view. With this limitation , no definite free air under the diaphragm is identified. No multiple air-fluid levels or signs of ac masha high-grade small bowel obstruction. Mild fecal loading of the colon. Cholecystectomy clips. No gross aggressive bone lesion. Suspected bi lateral sacroiliitis changes. IMPRESSION: No definite acute abnormality identified. Incidental findings as described above. Further CT assessme nt can be considered if clinically required.
== END | disposition home or self-care (01) ==
LOC: RADXRMAIN 12:26
PROVIDERS: ATTEND Family Medicine
DX: R10.11 Right upper quadrant pain (principal)
CPT/HCPCS: 74019

== ENCOUNTER 2021-06-09 00:07 | Emergency (ER) | payer OTHER ==
[2021-06-09 00:17] VITALS: TEMP 98.2
[2021-06-09] MEDS ORDERED: ONDANSETRON 4 MG/2 ML VIAL IVP STA (01:48)
[2021-06-09] MEDS ORDERED: SODIUM CHLORIDE 0.9% 1,000 ML IV STA (01:48)
[2021-06-09] MEDS ORDERED: KETOROLAC 15 MG/ML 1 ML VIAL IVP STA (01:48)
[2021-06-09] MEDS ORDERED: MORPHINE SULFATE 4 MG/ML SYRINGE IV STA (01:48)
--- NOTE | 2021-06-09 01:48 | ED ---
Abdominal Pain HPI - General Chief Complaint: Abdominal Pain Stated Complaint: RT flank pain Time Seen by Provider: 06/09/21 01:39 Source: patient, RN notes reviewed, old records reviewed Limitations: no limitations - History of Present Illness Initial Comments: This is a 46-year-old female to the emergency department for evaluation of right-sided abdominal pain right flank pain right lower quadrant abdominal pain. Mild obesity, history of gallbladder removal. Symptoms admitted for a few days progressively worsening. She did have an x-ray unsure of findings. No fevers n o travel history no sick contacts. No nausea vomiting no other complaints MD Complaint: abdominal pain, flank pain, other (right) -: days(s) Location: diffuse, RLQ, suprapubic, R flank Radiation: R flank Migration to: RLQ Severity: severe Severity scale (1-10): 8 Quality: stabbing, aching Consistency: constant Improves With: nothing Worsens With: nothing Associated Symptoms: nausea, vomiting, constipation Treatments Prior to Arrival: NSAIDs, antacids - Related Data Home Medications Medication Instructions Recorded Confirmed Ibuprofen [Motrin] 800 mg PO TID PRN 04/12/14 08/10/18 Albuterol Inhaler (Mhu) [Ventolin 2 puff INHALATION RT-Q6H PRN 10/23/15 08/10/18 Hfa Inhaler] Cetirizine HCl [Zyrtec] 10 mg PO DAILY 10/23/15 08/10/18 Ergocalciferol [Vitamin D2 50,000 unit PO WE 10/23/15 08/10/18 (DRISDOL)] oxyCODONE-APAP 10-325MG [Percocet 1 tab PO Q6HR PRN 10/23/15 08/10/18 10-325 mg] Cyclobenzaprine [Flexeril] 10 mg PO TID PRN 08/10/16 08/10/18 Atorvastatin [Lipitor] 40 mg PO HS 08/10/18 08/10/18 Beclomethasone Dip 80 Mcg/Puff 2 puff INHALATION RT-BID 08/10/18 08/10/18 [Qvar 80 mcg] Canagliflozin [Invokana] 100 mg PO DAILY 08/10/18 08/10/18 FLUoxetine HCL [PROzac] 40 mg PO DAILY 08/10/18 08/10/18 Lisinopril-Hctz 20-12.5 mg 1 tab PO DAILY 08/10/18 08/10/18 [Zestoretic 20-12.5] Magnesium Oxide [Mag-Ox] 400 mg PO DAILY 08/10/18 08/10/18 Psyllium Husk/Aspartame [Metamucil 1 scoop PO DAILY 08/10/18 08/10/18 Sugar-Free Powder] metFORMIN HCL ER [Glucophage XR] 2,000 mg PO DAILY 08/10/18 08/10/18 sitaGLIPtin [Januvia] 100 mg PO DAILY 08/10/18 08/10/18 traZODone HCL [TraZODone HCl] 25 mg PO HS 08/10/18 08/10/18 Allergies Allergy/AdvReac Type Severity Reaction Status Date / Time No Known Allergies Allergy Verified 03/18/19 00:08 Review of Systems ROS Statement: Those systems with pertinent positive or pertinent negative responses have been documented in the HPI. ROS Other: All systems not noted in ROS Statement are negative. Past Medical History Past Medical History: Diabetes Mellitus, Hyperlipidemia, Osteoarthritis (OA) Additional Past Medical History / Comment(s): PT STATES TYPE 2 DIABETES WITH NO MEDS. STATES SCHEDULED FOR LEFT KNEE REPLACEMENT WITH DR WARREN; chronic back pain History of Any Multi-Drug Resistant Organisms: None Reported Past Surgical History: Section, Cholecystectomy, Joint Replacement, Tubal Ligation, Uterine Ablation Additional Past Surgical History / Comment(s): LEFT KNEE REPLACEMENT Past Anesthesia/Blood Transfusion Reactions: Postoperative Nausea & Vomiting (PONV) Past Psychological History: Anxiety, Depression Smoking Status: Current every day smoker Past Alcohol Use History: None Reported Past Drug Use History: None Reported General Exam Limitations: no limitations General appearance: alert, in no apparent distress Head exam: Present: atraumatic, normocephalic, normal inspection Eye exam: Present: normal appearance, PERRL, EOMI. Absent: scleral icterus, conjunctival injection, periorbital swelling ENT exam: Present: normal exam, mucous membranes moist Neck exam: Present: normal inspection. Absent: tenderness, meningismus, lymphadenopathy Respiratory exam: Present: normal lung sounds bilaterally. Absent: respiratory distress, wheezes, rales, rhonchi, stridor Cardiovascular Exam: Present: regular rate, normal rhythm, normal heart sounds. Absent: systolic murmur, diastolic murmur, rubs, gallop, clicks GI/Abdominal exam: Present: soft, normal bowel sounds. Absent: distended, tenderness, guarding, rebound, rigid Extremities exam: Present: normal inspection, full ROM, normal capillary refill. Absent: tenderness, pedal edema, joint swelling, calf tenderness Back exam: Present: normal inspection Neurological exam: Present: alert, oriented X3, CN II-XII intact Psychiatric exam: Present: normal affect, normal mood Skin exam: Present: warm, dry, intact, normal color. Absent: rash Course Vital Signs 06/09/21 06/09/21 06/09/21 00:13 03:01 04:19 Temperature 98.2 F Pulse Rate 88 83 82 Respiratory 16 16 18 Rate Blood Pressure 129/80 129/96 133/77 O2 Sat by Pulse 98 97 96 Oximetry - Reevaluation(s) Reevaluation #1: 06/09/21 06:03 Medical records reviewed Reevaluation #2: 06/09/21 06:03 Patient symptoms are improved Reevaluation #3: 06/09/21 06:04 Patient informed of results and questions answered Medical Decision Making - Medical Decision Making 46 female to the ER for evaluation patient Dese for evaluation regards to abdominal pain flank pain. Possibly recently passed kidney stone does have 137) a no other acute findings and CT lab scans. May have some gastritis or colitis with elevated white blood cell patient concurrently be discharged home pain is controlled - Lab Data Result diagrams: 06/09/21 02:19 06/09/21 02:19 Lab Results 06/09/21 06/09/21 06/09/21 Range/Units 02:19 02:19 03:20 WBC 17.7 H (3.8-10.6) k/uL RBC 4.77 (3.80-5.40) m/uL Hgb 13.6 (11.4-16.0) gm/dL Hct 42.1 (34.0-46.0) % MCV 88.4 (80.0-100.0) fL MCH 28.5 (25.0-35.0) pg MCHC 32.3 (31.0-37.0) g/dL RDW 13.3 (11.5-15.5) % Plt Count 312 (150-450) k/uL MPV 9.2 Neutrophils % 65 % Lymphocytes % 24 % Monocytes % 5 % Eosinophils % 4 % Basophils % 1 % Neutrophils # 11.5 H (1.3-7.7) k/uL Lymphocytes # 4.2 (1.0-4.8) k/uL Monocytes # 0.9 (0-1.0) k/uL Eosinophils # 0.7 (0-0.7) k/uL Basophils # 0.2 (0-0.2) k/uL Sodium 137 (137-145) mmol/L Potassium 4.7 (3.5-5.1) mmol/L Chloride 104 (98-107) mmol/L Carbon Dioxide 22 (22-30) mmol/L Anion Gap 11 mmol/L BUN 9 (7-17) mg/dL Creatinine 0.83 (0.52-1.04) mg/dL Est GFR (CKD-EPI)AfAm >90 (>60 ml/min/1.73 sqM) Est GFR (CKD-EPI)NonAf 84 (>60 ml/min/1.73 sqM) Glucose 102 H (74-99) mg/dL Calcium 9.1 (8.4-10.2) mg/dL Total Bilirubin 0.5 (0.2-1.3) mg/dL AST 24 (14-36) U/L ALT 20 (4-34) U/L Alkaline Phosphatase 99 (38-126) U/L Total Protein 8.3 H (6.3-8.2) g/dL Albumin 4.2 (3.5-5.0) g/dL Amylase 60 (30-110) U/L Lipase 186 (23-300) U/L Urine Color Yellow Urine Appearance Clear (Clear) Urine pH 5.5 (5.0-8.0) Ur Specific [place] 1.011 (1.001-1.035) Urine Protein Negative (Negative) Urine Glucose (UA) Negative (Negative) Urine Ketones Negative (Negative) Urine Blood Negative (Negative) Urine Nitrite Negative (Negative) Urine Bilirubin Negative (Negative) Urine Urobilinogen <2.0 (<2.0) mg/dL Ur Leukocyte Esterase Negative (Negative) - Radiology Data Radiology results: report reviewed (CT abdomen and pelvis is negative for significant acute disease), image reviewed Disposition Clinical Impression: Abdominal pain, Kidney stone on right side Disposition: HOME SELF-CARE Condition: Good Instructions (If sedation given, give patient instructions): Kidney Stones (ED) Is patient prescribed a controlled substance at d/c from ED?: No Referrals: Waldo Butcher DO [Primary Care Provider] - 1-2 days
[2021-06-09 02:39] LABS: Basophils # (A) 0.2 k/uL (0-0.2); Basophils % (A) 1 %; Eosinophils # (A) 0.7 k/uL (0-0.7); Eosinophils % (A) 4 %; HCT 42.1 % (34.0-46.0); HGB 13.6 gm/dL (11.4-16.0); Lymphocytes # (A) 4.2 k/uL (1.0-4.8); Lymphocytes % (A) 24 %; MCH 28.5 pg (25.0-35.0); MCHC 32.3 g/dL (31.0-37.0); MCV 88.4 fL (80.0-100.0); Mean Platelet Volume 9.2; Monocytes # (A) 0.9 k/uL (0-1.0); Monocytes % (A) 5 %; Neutrophils # (A) 11.5 k/uL (1.3-7.7); Neutrophils % (A) 65 %; Platelet Count 312 k/uL (150-450); RBC 4.77 m/uL (3.80-5.40); RDW 13.3 % (11.5-15.5); WBC 17.7 k/uL (3.8-10.6)
[2021-06-09 02:51] LABS: ALT 20 U/L (4-34); AST 24 U/L (14-36); African American GFR (CKD) >90 (>60 ml/min/1.73 sqM); Albumin 4.2 g/dL (3.5-5.0); Alkaline Phosphatase 99 U/L (38-126); Amylase 60 U/L (30-110); Anion Gap 11 mmol/L; Blood Urea Nitrogen 9 mg/dL (7-17); Calcium 9.1 mg/dL (8.4-10.2); Carbon Dioxide 22 mmol/L (22-30); Chloride 104 mmol/L (98-107); Glucose 102 mg/dL (74-99); Lipase 186 U/L (23-300); Non-African American GFR(CKD) 84 (>60 ml/min/1.73 sqM); Potassium 4.7 mmol/L (3.5-5.1); Sodium 137 mmol/L (137-145); Total Bilirubin 0.5 mg/dL (0.2-1.3); Total Protein 8.3 g/dL (6.3-8.2)
--- NOTE | 2021-06-09 02:59 | CT ---
EXAMINATION TYPE: CT abdomen pelvis wo con DATE OF EXAM: 06/09/2021 COMPARISON: 01/20/2014 HISTORY: pain CT DLP: 1923 mGycm Automated exposure control for dose reduction was used. Images obtained from the diaphragm to the floor the pelvis without contrast. Lung bases are clear of consolidation. There is no pleural effusion. Heart size is normal. Spleen measures 13.5 cm. There are clips from cholecystectomy. Liver is enlarged and measures 21 cm. Stomach is intact. There is no pancreatic mass. The bile ducts are not dilated. There is no adrenal mass. Kidneys have normal size. There is no hydronephrosis. Ureters are not dilat ed. There is 3 mm calculus upper pole right kidney. There is no retroperitoneal adenopathy. Bladder d istends smoothly. There is no inguinal hernia. Uterus is anteverted. There is no pelvic mass. There i s no free fluid in the pelvis. Lumbar vertebrae have normal alignment. Disc spaces are fairly normal. There is no compression fracture. Appendix is posterior and appears normal. There is no mesenteric edema. There is no ascites or free a ir. There is no bowel obstruction. The bony pelvis is intact. Hip joints are intact. There is a 3 cm fat-containing umbilical hernia. IMPRESSION: No acute abnormality of the abdomen and pelvis. Hepatomegaly. Mild splenomegaly. No adverse change co mpared to old exam
[2021-06-09 03:36] LABS: Appearance,Urine Clear (Clear); Bilirubin,Urine Negative (Negative); Blood,Urine Negative (Negative); Color,Urine Yellow; Glucose,Urine (UA) Negative (Negative); Ketones,Urine Negative (Negative); Leukocyte Esterase,Urine Negative (Negative); Nitrite,Urine Negative (Negative); PH, Urine 5.5 (5.0-8.0); Protein,Urine Negative (Negative); Specific Gravity,Urine 1.011 (1.001-1.035); Urobilinogen,Urine <2.0 mg/dL (<2.0)
[2021-06-09] MEDS ORDERED: IBUPROFEN 600 MG STARTER PACK 4 TAB BTL PO STA (04:15)
[2021-06-09] MEDS ORDERED: ONDANSETRON 4 MG ODT STARTER PACK 2 TAB BTL PO STA (04:15)
[2021-06-09] MEDS ORDERED: ACET/COD 300 MG/30 MG STARTER PACK 6 TAB BTL PO STA (04:15)
[2021-06-09 04:21] VITALS: BP 133/77; PULSE 82; RESP 18
--- NOTE | 2021-06-09 04:29 | XR ---
EXAMINATION TYPE: XR chest 1V portable DATE OF EXAM: 06/09/2021 COMPARISON: 08/13/2017 HISTORY: Cough TECHNIQUE: FINDINGS: There is no heart failure nor confluent pneumonic infiltrate. Costophrenic angles are clear . There are no hilar masses. Bony thorax is intact. IMPRESSION: No active cardiopulmonary disease. Normal heart. No change.
== END 2021-06-09 04:42 | disposition home or self-care (01) ==
LOC: EC 00:07
DX: N20.0 Calculus of kidney (principal); F17.200 Nicotine dependence, unspecified, uncomplicated
CPT/HCPCS: 36415; 80053; 82150; 83690; 85025; 81003; 71045; 74176; 99284; 96374; 96375; 96361; J2270; J2405; J1885; S0119

== ENCOUNTER → 2021-09-16 | Outpatient (CLI) | payer OTHER ==
--- NOTE | 2021-09-17 08:29 | MM ---
Reason for Exam: Screening (asymptomatic). Last screening mammogram was performed 11 month(s) ago. Patient History: Menarche at age 10. First Full-Term at age 21. Last menstrual period: 03/29/2008 Risk Values: Yolis 5 year model risk: 0.8%. NCI Lifetime model risk: 8.3%. Prior Study Comparison: 06/30/2018 Bilateral Screening Mammogram, [facility]. 09/13/2019 Bilateral Screening Mammogram, [facility]. 10/09/2020 Bilateral Diagnostic Mammogram, [facility]. Tissue Density: There are scattered fibroglandular densities. Findings: Analyzed By CAD. No suspicious groups of microcalcifications, spiculated or lobular masses, architectural distortion or other secondary signs of malignancy are mammographically apparent. Overall Assessment: Benign, BI-RAD 2 Management: Screening Mammogram of both breasts in 1 year. A negative mammogram report should not preclude additional follow up of suspicious palpable abnormalities. Patient should continue monthly self breast exam. A clinical breast exam by your physician is recommended on an annual basis and results should be correlated with mammographic findings. Electronically signed and approved by: Javier Dunlap D.O. Radiologis
== END | disposition home or self-care (01) ==
LOC: RADMAMWWP 13:47
PROVIDERS: ATTEND Family Medicine
DX: Z12.31 Encounter for screening mammogram for malignant neoplasm of breast (principal)
CPT/HCPCS: 77067

== ENCOUNTER 2022-01-05 14:34 | Emergency (ER) | payer OTHER ==
[2022-01-05 14:45] VITALS: RESP 18; TEMP 97.5
[2022-01-05] MEDS ORDERED: SODIUM CHLORIDE 0.9% 2,000 ML IV STA (15:10)
[2022-01-05 15:19] LABS: Basophils # (A) 0.1 k/uL (0-0.2); Basophils % (A) 1 %; Eosinophils # (A) 0.6 k/uL (0-0.7); Eosinophils % (A) 3 %; HCT 41.1 % (34.0-46.0); HGB 13.5 gm/dL (11.4-16.0); Lymphocytes # (A) 2.5 k/uL (1.0-4.8); Lymphocytes % (A) 15 %; MCH 28.9 pg (25.0-35.0); MCHC 32.7 g/dL (31.0-37.0); MCV 88.3 fL (80.0-100.0); Mean Platelet Volume 10.2; Monocytes # (A) 0.9 k/uL (0-1.0); Monocytes % (A) 5 %; Neutrophils # (A) 12.5 k/uL (1.3-7.7); Neutrophils % (A) 75 %; Platelet Count 231 k/uL (150-450); RBC 4.65 m/uL (3.80-5.40); RDW 13.6 % (11.5-15.5); WBC 16.6 k/uL (3.8-10.6)
[2022-01-05 15:21] LABS: Albumin 4.1 g/dL (3.5-5.0); Calcium 9.5 mg/dL (8.4-10.2); Total Bilirubin 0.6 mg/dL (0.2-1.3); Total Protein 7.6 g/dL (6.3-8.2)
--- NOTE | 2022-01-05 15:47 | ED ---
General Adult HPI - General Chief complaint: Recheck/Abnormal Lab/Rx Stated complaint: LOW BP Time Seen by Provider: 01/05/22 15:00 Source: patient, EMS Mode of arrival: EMS Limitations: no limitations - History of Present Illness Initial comments: Patient is a 46-year-old female with past medical history of hypertension, hyperlipidemia, diabetes or presents to the emergency department with a chief complaint of low blood pressure. States she was at a surgical consult for future surgery on her right foot when she began to feel clammy and lightheaded. Patient states at this time her blood pressure was 89/50. She did not have a syncopal episode. Patient was sent to the emergency department. Patient reports improved symptoms now. She denies fever, chills, chest pain, dizziness, shortness of breath, abdominal pain, nausea, vomiting, diarrhea. Does report upper respiratory symptoms this week with dry cough and runny nose. States she has been drinking her normal amount of water. Patient takes lisinoprilhydrochlorothiazide 20-12.5 once daily and Norvasc 5 mg daily. Reports taking his medications as directed. - Related Data Home Medications Medication Instructions Recorded Confirmed Ibuprofen [Motrin] 800 mg PO TID PRN 04/12/14 01/05/22 Albuterol Inhaler [Ventolin Hfa 2 puff INHALATION RT-Q6H PRN 10/23/15 01/05/22 Inhaler] Cetirizine HCl [Zyrtec] 10 mg PO HS 10/23/15 01/05/22 Ergocalciferol [Vitamin D2 50,000 unit PO WE 10/23/15 01/05/22 (DRISDOL)] oxyCODONE-APAP 10-325MG [Percocet 1 tab PO Q6HR PRN 10/23/15 01/05/22 10-325 mg] Atorvastatin [Lipitor] 40 mg PO HS 08/10/18 01/05/22 FLUoxetine HCL [PROzac] 40 mg PO HS 08/10/18 01/05/22 metFORMIN HCL ER [Glucophage XR] 2,000 mg PO W/SUPPER 08/10/18 01/05/22 traZODone HCL [TraZODone HCl] 100 mg PO HS 08/10/18 01/05/22 Budesonide/Formoterol Fumarate 2 puff INHALATION RT-BID 01/05/22 01/05/22 [Symbicort 160-4.5 Mcg Inhaler] Empagliflozin [Jardiance] 25 mg PO HS 01/05/22 01/05/22 Ezetimibe [Zetia] 10 mg PO HS 01/05/22 01/05/22 Liraglutide [Victoza 3-Brennen] 1.2 mg SQ DAILY@1700 01/05/22 01/05/22 Lisinopril-Hctz 20-25 mg 1 tab PO HS 01/05/22 01/05/22 [Zestoretic 20-25] amLODIPine [Norvasc] 5 mg PO HS 01/05/22 01/05/22 Allergies Allergy/AdvReac Type Severity Reaction Status Date / Time No Known Allergies Allergy Verified 01/05/22 17:10 Review of Systems ROS Statement: Those systems with pertinent positive or pertinent negative responses have been documented in the HPI. ROS Other: All systems not noted in ROS Statement are negative. Past Medical History Past Medical History: Diabetes Mellitus, Hyperlipidemia, Hypertension, Osteoarthritis (OA) Additional Past Medical History / Comment(s): PT STATES TYPE 2 DIABETES WITH NO MEDS. STATES SCHEDULED FOR LEFT KNEE REPLACEMENT WITH DR WARREN; chronic back pain History of Any Multi-Drug Resistant Organisms: None Reported Past Surgical History: Section, Cholecystectomy, Joint Replacement, Tubal Ligation, Uterine Ablation Additional Past Surgical History / Comment(s): LEFT KNEE REPLACEMENT Past Anesthesia/Blood Transfusion Reactions: Postoperative Nausea & Vomiting (PONV) Past Psychological History: Anxiety, Depression Smoking Status: Current every day smoker Past Alcohol Use History: None Reported Past Drug Use History: None Reported General Exam Limitations: no limitations General appearance: alert, in no apparent distress Head exam: Present: atraumatic, normocephalic, normal inspection Eye exam: Present: normal appearance, PERRL, EOMI. Absent: scleral icterus, conjunctival injection, periorbital swelling ENT exam: Present: normal oropharynx, mucous membranes moist. Absent: mucous membranes dry Respiratory exam: Present: normal lung sounds bilaterally. Absent: respiratory distress, wheezes, rales, rhonchi, stridor Cardiovascular Exam: Present: regular rate, normal rhythm, normal heart sounds. Absent: systolic murmur, diastolic murmur, rubs, gallop, clicks GI/Abdominal exam: Present: soft, normal bowel sounds. Absent: distended, tenderness, guarding, rebound, rigid Extremities exam: Present: normal inspection, full ROM, normal capillary refill, other (2+ pulses upper and lower extremities ). Absent: joint swelling Neurological exam: Present: alert, oriented X3, CN II-XII intact Psychiatric exam: Present: normal affect, normal mood Skin exam: Present: warm, dry, intact, normal color. Absent: rash Course Vital Signs 01/05/22 01/05/22 01/05/22 14:36 15:50 15:52 Temperature 97.5 F L Pulse Rate 68 Pulse Rate [ 69 73 Supine Pulse Oximetery] Respiratory 18 18 18 Rate Blood Pressure 96/65 Blood Pressure 101/62 104/62 [Right Arm Supine] O2 Sat by Pulse 97 95 94 L Oximetry 01/05/22 15:54 Temperature Pulse Rate Pulse Rate [ 70 Supine Pulse Oximetery] Respiratory 18 Rate Blood Pressure Blood Pressure 105/71 [Right Arm Supine] O2 Sat by Pulse 96 Oximetry EKG Findings - EKG Comments: EKG Findings:: EKG obtained at 14:56. Sinus bradycardia, no new ST or T-wave abnormalities. Ventricular rate 54. TX interval 165. QRS duration 101. QTc 402 Medical Decision Making - Medical Decision Making This is a 46-year-old female presents with low blood pressure. Patient is well- appearing and in no apparent distress. She does not appear dehydrated. Blood pressure is 96/65. Orthostatics negative. EKG shows sinus bradycardia with T wave inversions in lead III, which are old compared to previous EKG.. Laboratory studies obtained. There is leukocytosis at 16.6, likely due to viral upper respiratory infection. COVID-19 is not detected. Chest x-ray shows no acute process. Urinalysis shows 4+ glucose without evidence of infection. Patient given large fluid bolus which improved blood pressure. Patient will be discharged with strict return parameters. She'll increase fluids intake. She will follow-up with primary care for repeat urinalysis. Dr. De Luna is my attending. - Lab Data Result diagrams: 01/05/22 15:13 01/05/22 15:13 Lab Results 01/05/22 01/05/22 01/05/22 Range/Units 15:13 15:13 16:19 WBC 16.6 H (3.8-10.6) k/uL RBC 4.65 (3.80-5.40) m/uL Hgb 13.5 (11.4-16.0) gm/dL Hct 41.1 (34.0-46.0) % MCV 88.3 (80.0-100.0) fL MCH 28.9 (25.0-35.0) pg MCHC 32.7 (31.0-37.0) g/dL RDW 13.6 (11.5-15.5) % Plt Count 231 (150-450) k/uL MPV 10.2 Neutrophils % 75 % Lymphocytes % 15 % Monocytes % 5 % Eosinophils % 3 % Basophils % 1 % Neutrophils # 12.5 H (1.3-7.7) k/uL Lymphocytes # 2.5 (1.0-4.8) k/uL Monocytes # 0.9 (0-1.0) k/uL Eosinophils # 0.6 (0-0.7) k/uL Basophils # 0.1 (0-0.2) k/uL Sodium 135 L (137-145) mmol/L Potassium 4.0 (3.5-5.1) mmol/L Chloride 100 (98-107) mmol/L Carbon Dioxide 24 (22-30) mmol/L Anion Gap 11 mmol/L BUN 14 (7-17) mg/dL Creatinine 0.97 (0.52-1.04) mg/dL Est GFR (CKD-EPI)AfAm 80 (>60 ml/min/1.73 sqM) Est GFR (CKD-EPI)NonAf 70 (>60 ml/min/1.73 sqM) Glucose 131 H (74-99) mg/dL Calcium 9.5 (8.4-10.2) mg/dL Total Bilirubin 0.6 (0.2-1.3) mg/dL AST 27 (14-36) U/L ALT 22 (4-34) U/L Alkaline Phosphatase 87 (38-126) U/L Total Protein 7.6 (6.3-8.2) g/dL Albumin 4.1 (3.5-5.0) g/dL Urine Color Urine Appearance (Clear) Urine pH (5.0-8.0) Ur Specific [place] (1.001-1.035) Urine Protein (Negative) Urine Glucose (UA) (Negative) Urine Ketones (Negative) Urine Blood (Negative) Urine Nitrite (Negative) Urine Bilirubin (Negative) Urine Urobilinogen (<2.0) mg/dL Ur Leukocyte Esterase (Negative) Coronavirus (PCR) Not Detected (Not Detectd) 01/05/22 Range/Units 17:16 WBC (3.8-10.6) k/uL RBC (3.80-5.40) m/uL Hgb (11.4-16.0) gm/dL Hct (34.0-46.0) % MCV (80.0-100.0) fL MCH (25.0-35.0) pg MCHC (31.0-37.0) g/dL RDW (11.5-15.5) % Plt Count (150-450) k/uL MPV Neutrophils % % Lymphocytes % % Monocytes % % Eosinophils % % Basophils % % Neutrophils # (1.3-7.7) k/uL Lymphocytes # (1.0-4.8) k/uL Monocytes # (0-1.0) k/uL Eosinophils # (0-0.7) k/uL Basophils # (0-0.2) k/uL Sodium (137-145) mmol/L Potassium (3.5-5.1) mmol/L Chloride (98-107) mmol/L Carbon Dioxide (22-30) mmol/L Anion Gap mmol/L BUN (7-17) mg/dL Creatinine (0.52-1.04) mg/dL Est GFR (CKD-EPI)AfAm (>60 ml/min/1.73 sqM) Est GFR (CKD-EPI)NonAf (>60 ml/min/1.73 sqM) Glucose (74-99) mg/dL Calcium (8.4-10.2) mg/dL Total Bilirubin (0.2-1.3) mg/dL AST (14-36) U/L ALT (4-34) U/L Alkaline Phosphatase (38-126) U/L Total Protein (6.3-8.2) g/dL Albumin (3.5-5.0) g/dL Urine Color Light Yellow Urine Appearance Clear (Clear) Urine pH 5.5 (5.0-8.0) Ur Specific [place] 1.028 (1.001-1.035) Urine Protein Negative (Negative) Urine Glucose (UA) 4+ H (Negative) Urine Ketones Negative (Negative) Urine Blood Negative (Negative) Urine Nitrite Negative (Negative) Urine Bilirubin Negative (Negative) Urine Urobilinogen <2.0 (<2.0) mg/dL Ur Leukocyte Esterase Negative (Negative) Coronavirus (PCR) (Not Detectd) Disposition Clinical Impression: Hypotension, Upper respiratory infection, Lightheadedness Disposition: HOME SELF-CARE Condition: Good Instructions (If sedation given, give patient instructions): Hypotension (ED) Additional Instructions: Please increase water intake to maintain blood pressure. Do not take blood pressure medication today. You may start taking it again tomorrow. Follow-up with primary care provider in one to 2 days. Please speak with him regarding glucose and urine today. You will need to repeat urinalysis. Return to the emergency department if you experience new, concerning, or worsening symptoms. Is patient prescribed a controlled substance at d/c from ED?: No Referrals: Waldo Butcher DO [Primary Care Provider] - 1-2 days Time of Disposition: 17:29
--- NOTE | 2022-01-05 16:17 | XR ---
EXAMINATION TYPE: XR chest 2V DATE OF EXAM: 01/05/2022 COMPARISON: 06/09/2021 INDICATION: Hypotension TECHNIQUE: Frontal and lateral views of the chest are obtained. FINDINGS: The heart size is normal. The pulmonary vasculature is normal. The lungs are clear. IMPRESSION: 1. No acute pulmonary process.
[2022-01-05 17:33] LABS: Appearance,Urine Clear (Clear); Bilirubin,Urine Negative (Negative); Blood,Urine Negative (Negative); Color,Urine Light Yellow; Glucose,Urine (UA) 4+ (Negative); Ketones,Urine Negative (Negative); Leukocyte Esterase,Urine Negative (Negative); Nitrite,Urine Negative (Negative); PH, Urine 5.5 (5.0-8.0); Protein,Urine Negative (Negative); Specific Gravity,Urine 1.028 (1.001-1.035); Urobilinogen,Urine <2.0 mg/dL (<2.0)
[2022-01-05 18:44] VITALS: BP 104/61; PULSE 96
== END 2022-01-05 18:44 | disposition home or self-care (01) ==
LOC: EC 14:34
DX: I95.89 Other hypotension (principal); J06.9 Acute upper respiratory infection, unspecified; I10 Essential (primary) hypertension; E11.9 Type 2 diabetes mellitus without complications; E78.5 Hyperlipidemia, unspecified; F17.200 Nicotine dependence, unspecified, uncomplicated; Z20.822 Contact with and (suspected) exposure to COVID-19; Z79.84 Long term (current) use of oral hypoglycemic drugs; Z79.899 Other long term (current) drug therapy
CPT/HCPCS: 36415; 71046; 80053; 81003; 85025; 87635; 93005; 96360; 96361; 99284

== ENCOUNTER 2024-01-28 09:59 | Day surgery (SDC) | payer OTHER ==
[2024-01-28 10:44] VITALS: RESP 16; TEMP 97.1
[2024-01-28 10:51] LABS: Glucose,Whole Blood 114 mg/dL (70-110)
[2024-01-28] MEDS: IV FLUID CONTINUATION 1,000 ML IV ONE (10:51)
[2024-01-28] MEDS: LACTATED RINGERS 1,000 ML IV SCH (10:52)
[2024-01-28] MEDS ORDERED: PROPOFOL 10 MG/ML 20 ML VIAL IV ONE (11:44)
--- NOTE | 2024-01-28 11:55 | P.PCN ---
Date of Procedure: 01/28/24 Procedure(s) Performed: BRIEF HISTORY: Patient is a 49-year-old pleasant white female scheduled for an elective colonoscopy as a part of screening for colon cancer. PROCEDURE PERFORMED: Colonoscopy. PREOPERATIVE DIAGNOSIS: Screening for colon cancer. IV sedation per Anesthesia. PROCEDURE: After informed consent was obtained, the patient, was brought into the endoscopy unit. IV sedation was administered by Anesthesia under continuous monitoring. Digital rectal examination was normal. Initially the Olympus CF-160 flexible video colonoscope was then inserted in the rectum, gradually advanced into the cecum without any difficulty. Careful examination was performed as the scope was gradually being withdrawn. Ileocecal valve and the appendiceal orifice were visualized and appeared normal. Prep was excellent. Mucosa of the cecum, ascending colon, transverse colon, descending colon, sigmoid colon, and rectum appeared normal. Retroflexion was performed in the rectum and no lesions were seen. The patient tolerated the procedure well. IMPRESSION: Normal-appearing colon from rectum to cecum no evidence of colorectal neoplasia. RECOMMENDATIONS: Findings of this examination were discussed with the patient as well as her family. She was placed have repeat screening in 10 years..
[2024-01-28 12:01] VITALS: BP 94/60
[2024-01-28 12:17] VITALS: PULSE 56
== END 2024-01-28 12:53 | disposition home or self-care (01) ==
LOC: ORWHC2ENDO 09:59
PROVIDERS: ATTEND Internal Medicine Gastroenterology
DX: Z12.11 Encounter for screening for malignant neoplasm of colon (principal); Z79.84 Long term (current) use of oral hypoglycemic drugs; Z79.899 Other long term (current) drug therapy
CPT/HCPCS: J2704; G0121

== ENCOUNTER → 2024-02-21 | Outpatient (CLI) | payer OTHER ==
--- NOTE | 2024-02-22 19:06 | MM ---
Reason for Exam: Screening (asymptomatic). Last mammogram was performed 2 year(s) and 5 month(s) ago. Patient History: Menarche at age 10. First Full-Term at age 21. Perimenopausal. Risk Values: Yolis 5 year model risk: 0.9%. NCI Lifetime model risk: 7.9%. Prior Study Comparison: 09/13/2019 Bilateral Screening Mammogram, [facility]. 10/09/2020 Bilateral Diagnostic Mammogram, [facility]. 09/16/2021 Bilateral MG screening mammo w CAD, [facility]. Tissue Density: There are scattered areas of fibroglandular density. Findings: Analyzed By CAD. New focal asymmetry marked by a mole marker along the inferior aspect of the right breast. Given the masslike appearance, further ultrasound evaluation recommended to ensure that this represents a cutaneous lesion. Otherwise, no significant change. Overall Assessment: Incomplete: need additional imaging evaluation, BI-RAD 0 Management: Diagnostic Breast Ultrasound of the right breast. [facility] will attempt to contact patient to return for ultrasound. [facility], , 02/22/2024 7:03 PM. Electronically signed and approved by: Stan Lua M.D. Radiologist
== END | disposition home or self-care (01) ==
LOC: RADMAMWWP 11:14
PROVIDERS: ATTEND Family Medicine
DX: Z12.31 Encounter for screening mammogram for malignant neoplasm of breast (principal); R92.323 Mammographic fibroglandular density, bilateral breasts
CPT/HCPCS: 77063; 77067

== ENCOUNTER → 2024-02-25 | Outpatient (CLI) | payer OTHER ==
--- NOTE | 2024-02-25 14:56 | USB ---
Reason for Exam: Additional evaluation requested from abnormal screening. Patient History: Menarche at age 10. First Full-Term at age 21. Perimenopausal. Risk Values: Yolis 5 year model risk: 0.9%. NCI Lifetime model risk: 7.9%. Technique: Method: Targeted. Doppler: Color. Patient Position: Supine. Prior Study Comparison: 10/09/2020 Bilateral Diagnostic Mammogram, [facility]. 09/16/2021 Bilateral MG screening mammo w CAD, [facility]. 02/21/2024 Bilateral MG 3D screening mammo w/cad, [facility]. Findings: The area of palpable concern of the right breast, the axilla of the right breast and the retroareolar of the right breast were scanned. Targeted right breast ultrasound at the patient's cutaneous lesion/palpable site at 6:00 position, 10 cm from the nipple corresponding to the mammographic abnormality. Additional scanning of the subareolar region and axilla. At the 6:00 position area of interest, abdomen just deep to the skin surface, there is a complex cystic area measuring 3.0 x 2.6 x 2.0 cm with some peripheral vascularity. Phlegmon and organizing abscess are suggested. No other solid or cystic lesion or axillary lymphadenopathy. Overall Assessment: Probably benign, BI-RAD 3 Management: Diagnostic Mammogram of the right breast in 6 months. Further clinical management of suspected infection and early abscess 6:00 right breast measuring up to 3.0 cm. Drainage may be needed if there is no improvement with antibiotics. Follow-up right breast mammogram to ensure clearance of the abnormal density. Results were given to the patient verbally at the time of exam. [facility], , 02/25/2024 2:48 PM. Electronically signed and approved by: Stan Lua M.D. Radiologist
== END | disposition home or self-care (01) ==
LOC: RADUSWWP 14:25
PROVIDERS: ATTEND Family Medicine
DX: R92.8 Other abnormal and inconclusive findings on diagnostic imaging of breast (principal)

== ENCOUNTER → 2024-09-04 | Outpatient (CLI) | payer OTHER ==
--- NOTE | 2024-09-04 11:51 | MM ---
Reason for Exam: Follow-up at short interval from prior study. Last screening mammogram was performed 7 month(s) ago. Patient History: Menarche at age 10. First Full-Term at age 21. Perimenopausal. Risk Values: Yolis 5 year model risk: 0.9%. NCI Lifetime model risk: 7.9%. Prior Study Comparison: 10/09/2020 Bilateral Diagnostic Mammogram, [facility]. 09/16/2021 Bilateral MG screening mammo w CAD, [facility]. 02/21/2024 Bilateral MG 3D screening mammo w/cad, [facility]. Tissue Density: Right: There are scattered areas of fibroglandular density. Findings: Analyzed By CAD. There are a few scattered small benign-appearing round calcifications throughout the right breast. Benign Appearing right axillary Lymph nodes redemonstrated. No suspicious new mass or distortion in the right breast. Overall Assessment: Benign, BI-RAD 2 Management: Screening Mammogram of both breasts in 6 months. Return to routine follow-up. Results were given to the patient verbally at the time of exam. Patient should continue monthly self-breast exams. A clinical breast exam by your physician is recommended on an annual basis. This exam should not preclude additional follow-up of suspicious palpable abnormalities. Note on Yolis scores and lifetime risk: 1. A Yolis score greater than 3% is considered moderate risk. If this is the case, consider specialist referral to assess eligibility for a risk reducing agent. 2. If overall lifetime risk for the development of breast cancer is 20% or higher, the patient may qualify for future screening with alternating mammogram and breast MRI. [facility], , 09/04/2024 11:48 AM. Electronically signed and approved by: Ta Ren M.D.
== END | disposition home or self-care (01) ==
LOC: RADMAMWWP 11:26
PROVIDERS: ATTEND Family Medicine
DX: R92.1 Mammographic calcification found on diagnostic imaging of breast (principal); N60.01 Solitary cyst of right breast
CPT/HCPCS: 77065; G0279; 77061